=== PATIENT | female | born 1955 | race Caucasian/White ===

== ENCOUNTER 2018-03-14 11:45 | Inpatient (IN) | payer OTHER ==
[~2018-03-14] VITALS: Ht 152.4 cm; Wt 74.8 kg
[2018-03-23] MEDS ORDERED: INTESTINEX680 M1 PO (09:13)
[2018-03-23] MEDS ORDERED: PERCOCET 5-3251 EACH PO (09:16)
[2018-03-23] MEDS ORDERED: LEVAQUIN750 MG PO (09:17)
== END 2018-03-23 11:00 | disposition home or self-care (01) | DRG 330 ==
LOC: SURG 03-19 07:22 → O/R 03-19 07:22 → SURH 03-19 11:45 → SURG 03-19 19:07
PROVIDERS: ADMIT Surgery
PROC: 0UBG4ZZ Excision of Vagina, Percutaneous Endoscopic Approach (ICD-10-PCS; 2018-03-19)
PROC: 0DBE4ZZ Excision of Large Intestine, Percutaneous Endoscopic Approach (ICD-10-PCS; 2018-03-19)
PROC: 0DNW4ZZ Release Peritoneum, Percutaneous Endoscopic Approach (ICD-10-PCS; 2018-03-19)
PROC: 0DQM4ZZ Repair Descending Colon, Percutaneous Endoscopic Approach (ICD-10-PCS; 2018-03-19)
PROC: 0DQ84ZZ Repair Small Intestine, Percutaneous Endoscopic Approach (ICD-10-PCS; 2018-03-19)
PROC: 0DJD8ZZ Inspection of Lower Intestinal Tract, Via Natural or Artificial Opening Endoscopic (ICD-10-PCS; 2018-03-19)
PROC: 0DTN4ZZ Resection of Sigmoid Colon, Percutaneous Endoscopic Approach (ICD-10-PCS; principal; 2018-03-19 12:15)
DX: K57.20 Diverticulitis of large intestine with perforation and abscess without bleeding (principal); N82.3 Fistula of vagina to large intestine; K91.72 Accidental puncture and laceration of a digestive system organ or structure during other procedure